=== PATIENT | female | born 1965 | race Caucasian/White ===

== ENCOUNTER 2020-12-07 21:50 | Emergency (ER) | payer OTHER ==
[~2020-12-07] VITALS: Ht 149.9 cm; Wt 65.0 kg
[~2020-12-07 21:50] MED LIST: AMITRIPTYLINE H25 MG; AMITRIPTYLINE H25 MG PO; CALCIUM ANTACI200 MG PO; CALCIUM CARBONATE PO; CALCIUM500 MG; CYCLOBENZAPRINE10 MG PO; GLIPIZIDE XL10 MG PO; GLIPIZIDE XL5 MG; HYDROCODON-ACE1 EA11 PO; IBUPROFEN800 MG PO; LANTUS100 UNITS/ SUB-Q; LEVAQUIN500 MG PO; LEVAQUIN750 MG PO; METOPROLOL SUCC50 MG; METOPROLOL SUCC50 MG PO; NORCO 5-325 TA1 EACH PO; NOVOLOG100 UNIT/1 SUB-Q; NOVOLOG100 UNITS/; NOVOLOG100 UNITS/ SUB-Q; VITAMIN D250000 UNIT PO
--- OUTSIDE RECORDS SUMMARY | 2020-12-07 21:52 | XMS ---
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 Jani has no Care Guidelines for this patient. Sima VISIT COUNT (12 MO.) 1 [facility] TOTAL 1 NOTE: Visits indicate total known visits. ED/UCC VISIT TRACKING (12 MO.) 12/07/2020 21:50 [facility] TYPE: Emergency COMPLAINT: - NAUSEA,DIARRHEA INPATIENT VISIT TRACKING (12 MO.) No inpatient visits to display in this time frame [email or web address]
[2020-12-07] MEDS ORDERED: GABAPENTIN100 MG PO (22:17)
[2020-12-07] MEDS ORDERED: LISINOPRIL5 MG PO (22:18)
[2020-12-07] MEDS ORDERED: INDOMETHACIN25 MG PO (22:18)
[2020-12-07] MEDS ORDERED: DICLOFENAC SOD100 G1 TOP (22:18)
[2020-12-07] MEDS ORDERED: ROSUVASTATIN CA10 MG PO (22:18)
[2020-12-07] MEDS ORDERED: CELECOXIB100 MG PO (22:18)
[2020-12-08] MEDS ORDERED: CEPHALEXIN500 MG PO (00:25)
[2020-12-08] MEDS ORDERED: HYDROCODON-ACE1 EA10 PO (00:25)
== END 2020-12-08 00:57 | disposition home or self-care (01) ==
LOC: ED 21:50
DX: N39.0 Urinary tract infection, site not specified (principal); E11.9 Type 2 diabetes mellitus without complications; I10 Essential (primary) hypertension; F17.200 Nicotine dependence, unspecified, uncomplicated; Z79.899 Other long term (current) drug therapy; Z79.4 Long term (current) use of insulin
CPT/HCPCS: 74177; 80053; 81001; 83690; 85025; 87077; 87088; 87186; 96375; 99284-25; J1170; J2405; J7030; Q9967

== ENCOUNTER 2025-04-18 18:09 | Emergency (ER) | payer OTHER ==
[~2025-04-18] VITALS: Ht 149.9 cm; Wt 72.5 kg
[~2025-04-18 18:09] MED LIST changes: +CELECOXIB100 MG PO; +CEPHALEXIN500 MG PO; +DICLOFENAC SOD100 G1 TOP; +GABAPENTIN100 MG PO; +HYDROCODON-ACE1 EA10 PO; +INDOMETHACIN25 MG PO; +LISINOPRIL5 MG PO; +ROSUVASTATIN CA10 MG PO
[2025-04-18] MEDS ORDERED: HYDROCODONE BIT/ACETAMINOPHEN 5/325 MG 1 TAB HOME.PACK PO PRN (19:15)
[2025-04-18] MEDS ORDERED: HYDROCODON-ACE1 EA10 PO (19:17)
[2025-04-18 19:50] VITALS: BP 125/78
== END 2025-04-18 19:45 | disposition home or self-care (01) ==
LOC: ED 18:09
DX: S42.291A Other displaced fracture of upper end of right humerus, initial encounter for closed fracture (principal); I10 Essential (primary) hypertension; E11.9 Type 2 diabetes mellitus without complications; F17.200 Nicotine dependence, unspecified, uncomplicated; Z79.2 Long term (current) use of antibiotics; W01.198A Fall on same level from slipping, tripping and stumbling with subsequent striking against other object, initial encounter
CPT/HCPCS: 73030; 99283; A9270

== ENCOUNTER 2025-05-14 19:17 | Emergency (ER) | payer OTHER ==
[~2025-05-14] VITALS: Ht 149.9 cm; Wt 68.8 kg
[2025-05-15] MEDS ORDERED: KETOROLAC TROMETHAMINE 30 MG/ML VIAL ONE (00:28)
[2025-05-15] MEDS ORDERED: KETOROLAC TROMETHAMINE 30 MG/ML VIAL IM ONE (00:30)
[2025-05-15 00:51] VITALS: BP 130/57
== END 2025-05-15 00:50 | disposition home or self-care (01) ==
LOC: ED 19:17
DX: M79.89 Other specified soft tissue disorders (principal); E11.9 Type 2 diabetes mellitus without complications; I10 Essential (primary) hypertension; F17.200 Nicotine dependence, unspecified, uncomplicated; Z79.899 Other long term (current) drug therapy; Z79.4 Long term (current) use of insulin
CPT/HCPCS: 36415; 85379; 99284-25